=== PATIENT | female | born 2000 | race Two or more races ===

== ENCOUNTER 2023-08-25 21:44 | Emergency (ER) | payer MEDICAID ==
[~2023-08-25] VITALS: Ht 149.9 cm; Wt 68.2 kg
[~2023-08-25 21:44] MED LIST: PRED10TA PO
[2023-08-25 23:04] LABS: BASOPHILS # (AUTO) 0.1 X10'3 (0-0.2); BASOPHILS % (AUTO) 0.9 % (0-1); EOSINOPHILS # (AUTO) 0.1 X10'3 (0-0.9); EOSINOPHILS % (AUTO) 1.5 % (0-6); LYMPHOCYTES # (AUTO) 3.9 X10'3 (1.1-4.8); LYMPHOCYTES % (AUTO) 41.1 % (21-51); MEAN CORPUSCULAR HEMOGLOBIN 29.4 PG (27.0-31.0); MEAN CORPUSCULAR HGB CONC 32.6 g/dL (33.0-36.5); MEAN CORPUSCULAR VOLUME 90.1 FL (78-98); MEAN PLATELET VOLUME 7.7 FL (7.4-10.4); MONOCYTES # (AUTO) 0.3 X10'3 (0-0.9); MONOCYTES % (AUTO) 3.7 % (2-12); NEUTROPHILS # (AUTO) 4.9 X10'3 (1.8-7.7); NEUTROPHILS % (AUTO) 52.8 % (42-75); PLATELET COUNT 339 X10'3 (140-440); RED BLOOD COUNT 5.44 X10'6 (4.20-5.60); WHITE BLOOD COUNT 9.4 X10'3 (4.5-11.0)
[2023-08-25 23:26] LABS: ALANINE AMINOTRANSFERASE 76 U/L (12-78); ALBUMIN 4.6 G/DL (3.4-5.0); ALBUMIN/GLOBULIN RATIO 1.2 (1.1-1.5); ALKALINE PHOSPHATASE 93 IU/L (46-116); ANION GAP 7 (8-16); ASPARTATE AMINO TRANSFERASE 59 U/L (10-37); BILIRUBIN,TOTAL 0.2 MG/DL (0.1-1.0); BLOOD UREA NITROGEN 9 MG/DL (7-18); BUN/CREATININE RATIO 10.1 (10.0-20.0); CALCIUM 8.8 MG/DL (8.5-10.1); CHLORIDE 103 MMOL/L (99-107); CREATININE 0.89 MG/DL (0.40-0.90); ETHANOL 201 MG/DL (<10); GLUCOSE 103 MG/DL (70-104); POTASSIUM 3.7 MMOL/L (3.5-5.1); SODIUM 141 MMOL/L (135-145); THYROID STIMULATING HORMONE 0.77 ulU/ml (0.34-4.50); TOTAL CARBON DIOXIDE 31.4 MMOL/L (24-32); TOTAL PROTEIN 8.5 G/DL (6.4-8.2); eCRCL 68 ML/MIN; eGFR 79 ML/MIN
[2023-08-26] MEDS ORDERED: LORA-268 PO (03:07)
[2023-08-26 03:58] VITALS: BP 120/68; PULSE 87; RESP 16; TEMP 98.1; O2SAT 97
== END 2023-08-26 03:59 | disposition home or self-care (01) ==
LOC: ER 21:45
DX: F41.9 Anxiety disorder, unspecified (principal); Z20.822 Contact with and (suspected) exposure to COVID-19; F10.129 Alcohol abuse with intoxication, unspecified; J45.909 Unspecified asthma, uncomplicated; Z91.040 Latex allergy status; Z79.899 Other long term (current) drug therapy; Y90.9 Presence of alcohol in blood, level not specified
CPT/HCPCS: 36415; 80053; 80320; 84443; 85025; 87811; 99283

== ENCOUNTER 2023-09-25 00:22 | Emergency (ER) | payer MEDICAID, OTHER ==
[~2023-09-25] VITALS: Ht 149.9 cm; Wt 65.6 kg
[~2023-09-25 00:22] MED LIST changes: +LORA-268 PO
[2023-09-25 00:34] VITALS: BP 120/78; PULSE 117; RESP 18; TEMP 98.4; O2SAT 97
[2023-09-25] MEDS ORDERED: LEVONORGESTREL 1.5MG tablet 1.5 MG TABLET PO ONE (03:30)
[2023-09-25] MEDS ORDERED: azithromycin 250mg tablet PO ONE (03:30)
[2023-09-25] MEDS ORDERED: TINIDAZOLE 500 MG TABLET PO ONE (03:30)
[2023-09-25] MEDS ORDERED: CefTRIAXone 500MG IM Kit w/LIDOcaine (for pt below or = to 150kg) IM ONE (03:30)
[2023-09-25 05:51] LABS: URINE HCG NEGATIVE (NEG)
== END 2023-09-25 05:55 | disposition home or self-care (01) ==
LOC: EEVIPCON 00:23 → ER 00:23
DX: T76.21XA Adult sexual abuse, suspected, initial encounter (principal); R10.2 Pelvic and perineal pain; N93.9 Abnormal uterine and vaginal bleeding, unspecified; Y08.89XA Assault by other specified means, initial encounter; Y93.89 Activity, other specified; Y92.89 Other specified places as the place of occurrence of the external cause; Y99.8 Other external cause status
CPT/HCPCS: 81025; 96372; 99284; J0696